=== PATIENT | female | born 1975 | race Caucasian/White ===

== ENCOUNTER 2020-09-01 04:26 | Outpatient (CLI) | payer BC, SELFPAY ==
[2020-09-03 11:36] LABS: Patient Race White; SARS-CoV-2 RNA Undetected (Undetected); SARS-CoV-2 Specimen Source Nasopharynx
== END 2020-09-01 04:46 ==
PROVIDERS: PCP Internal Medicine; Visit Provider Internal Medicine
DX: R50.9 Fever, unspecified (principal); R09.81 Nasal congestion
CPT/HCPCS: U0003

== ENCOUNTER 2021-08-10 11:29 | Outpatient (REF) | payer OTHER, SELFPAY | END 2021-08-10 11:30 | disposition home or self-care (01) | LOC: LBN 11:29 | PROVIDERS: PCP Internal Medicine; Referring Provider Physician Assistant Medical; Visit Provider Physician Assistant Medical | DX: R35.0 Frequency of micturition (principal) | CPT/HCPCS: 87077; 87086; 87186 ==

== ENCOUNTER 2025-05-31 07:23 | Emergency (ER) | payer OTHER, SELFPAY ==
[2025-05-31] VITALS (26 sets, daily range): BP systolic 100–135; BP diastolic 46–91; PULSE 87–194; RESP 11–31; TEMP 36.4; O2SAT 99–100
--- NOTE | 2025-05-31 07:15 | RT.EKG_ITS ---
APPROVED REPORT Exam: Resting ECG Reason for Exam: Chest Pain Patient Location: E HR:189 bpm ECG Measurements Heart Rate 189 AXIS NC [id number] P 0 QRSd 81 QRS 25 QT 282 T [id number] QTc 502 Conclusion Supraventricular tachycardia...V-rate>(220-age), QRSd<120 Repolarization abnormality, prob rate related...ST dep, T neg, tachycardia No Occlusion GA
--- NOTE | 2025-05-31 07:28 | ED.GENADUL_ITS ---
Discharge Plan Disposition Patient Disposition: Home Discharge Details Clinical Impression: Supraventricular tachycardia, Hypomagnesemia Primary Care Provider: Amy Ivan ED Provider: Deepak Carr Home Meds and New Rx's Prescriptions: Continued levothyroxine 150 mcg tablet 150 mcg PO DAILY Patient Comments: TAKE 1 TABLET BY MOUTH EVERY DAY Discharge Instructions Instructions: Supraventricular tachycardia (SVT) Additional Instructions: You are seen in the emergency department for your dizziness and chest discomfort. Your EKG showed that you are in a rapid rhythm called supraventricular tachycardia. You received adenosine which restored your normal sinus rhythm. As we discussed please follow-up with the primary care provider. Please return to the emergency department if you develop the symptoms again if you pass out or if you have any other concerns. Your sugar was quite high in the emergency department. Please follow-up with your primary care provider to monitor your prediabetes. Discharge Data Discharge Date/Time-TO BE ENTERED AT DEPARTURE: 05/31/25 10:15 HPI General Date/Time Provider Initiated Documentation: 05/31/25 07:28 . HPI Narrative: MDM Patient arrives in a narrow complex supraventricular tachycardia with rates up into the 190s. She had a normal blood pressure. She is mentating clearly. She had chest pressure. She had a nonischemic ECG. Following several attempts at cardioversion with vagal maneuvers I pushed 6 mg of adenosine. Patient's SVT broke. She felt improved. Her chest pressure nearly resolved. Her ECG was nonischemic showing a narrow complex normal sinus rhythm at a rate of 84. Her intervals were within normal limits. Equal breath sounds no trauma so doubt pneumothorax. No history of emesis to suggest esophageal rupture. No fevers to suggest pneumonia. No significant pericardial effusion to suggest tamponade. 8:34 AM Comprehensive metabolic panel showing very mild anion gap. Hyperglycemia. Normal bicarbonate?test not consistent with DKA. Mildly elevated alkaline phosphatase. Negative D-dimer. Reassuring troponin at 5 nanograms per liter. Given resolution of symptoms with adenosine will defer additional troponins. Patient is very low risk from a heart score perspective. I did not inquire as to family history of coronary artery disease so we will assign her 1 point for risk factors. Even with this additional risk factor added as a caution she is low risk from a heart score perspective. I anticipated that her subsequent troponins might be at risk for being elevated. Given her nearly resolved chest pain I felt that her chest pain was rate related and I did not feel that she required hospitalization for ischemic evaluation. I did not feel she required cardiology consultation. I did not feel that she required left heart catheterization or stress testing. We discussed possibility of primary care follow-up for subsequent palpitations. Negative hCG. Very mild hypomagnesemia. CBC notable for leukocytosis but no anemia nor thrombocytopenia. Will defer additional troponin given improved symptoms as my suspicion is high that patient would have elevated troponins given her tachycardia. Heart chest x-ray was read as unremarkable. She had no signs of heart failure on exam. Will ensure she can pass a p.o. trial. 9:43 AM Elevated TSH free T4 within normal limits. Patient passed p.o. trial. She felt improved. We discussed return indications like recurrent chest pain shortness of breath dizziness nausea or vomiting. I advised PCP follow-up to touch base about her SVT. She may or may not benefit from a Holter monitor if her symptoms recur. She was discharged with empiric trial of expectant outpatient management. HEART SCORE Chest pain Diagnostic Protocol: [-History/Physical/Gestalt: Slightly Suspicious (0)] [- EKG: Nonspecific repolarization (+1)] [- AGE: 45-65 (+1)] [- RISK FACTORS: 1 - 2 risk factors (+1)] [-TROPONIN: <= normal limit (0)] - TOTAL SCORE: 3 - Risk Factors: DM, current or recent smoker, HTN, HLD, family hx of CAD, obesity - INTERPRETATION: With a total score of 3 or less, risk of major cardiac event within six weeks 1.7%, likely lower with two negative troponins. Laboratory Tests Range/Units 05/31/25 05/31/25 05/31/25 07:34 08:32 10:32 WBC (4.4-10.8) 10^3/uL 11.07 H RBC (3.93-5.22) 10^6/uL 5.25 H Hgb (11.2-15.7) g/dL 15.0 Hct (36.0-46.0) % 44.8 MCV (80-95) fL 85 MCH (27.0-33.0) pg 28.6 MCHC (32.0-36.0) % 33.5 RDW (11.7-14.6) % 12.1 Plt Count (130-400) 10^3/uL 298 MPV (8.0-11.0) fL 10.1 Immature Gran % % 0.7 Neutrophils % % 58.1 Lymphocytes % % 31.6 Monocytes % % 6.7 Eosinophils % % 2.4 Basophils % % 0.5 Nucleated RBC % (0.0-0.3) % 0.0 Absolute Neutrophils (1.2-6.7) 10^3/uL 6.43 Absolute Lymphocytes (1.2-3.4) 10^3/uL 3.50 H Absolute Monocytes (0.1-0.8) 10^3/uL 0.74 Absolute Eosinophils (0.0-0.7) 10^3/uL 0.27 Absolute Basophils (0.0-0.2) 10^3/uL 0.06 D-Dimer (<500) ng/mlFEU 135 Sodium (136-145) mmol/L 134 L Potassium (3.5-5.1) mmol/L 3.9 Chloride (98-107) mmol/L 98 Carbon Dioxide (21.0-32.0) mmol/L 24.8 Anion Gap (3-11) mmol/L 11.2 H BUN (7-18) mg/dL 17 Creatinine (0.55-1.02) mg/dL 1.0 Est GFR (CKD-EPI 2020) (mL/min/1.73m2) 68.21 Glucose (74-106) mg/dL 495 H Calcium (8.5-10.1) mg/dL 9.4 Magnesium (1.8-2.4) mg/dL 1.7 L Total Bilirubin (0.2-1.0) mg/dL 0.4 AST (15-37) U/L 12 L ALT (14-59) U/L 41 Alkaline Phosphatase (46-116) U/L 142 H Troponin I (<or=51) ng/L 5 Cancelled Cancelled Total Protein (6.4-8.2) g/dL 7.4 Albumin (3.4-5.0) g/dL 3.7 TSH (0.36-3.74) uIU/mL 52.46 H Free T4 (0.76-1.46) ng/dL 0.98 Serum HCG, Qual Negative Add-On Test Request DONE Vital Signs Temperature 36.4 C 05/31/25 07:25 Temperature Source Oral 05/31/25 07:25 Pulse 90 05/31/25 09:55 Pulse 95 H 05/31/25 09:40 Respiratory Rate 11 L 05/31/25 09:55 Respiratory Effort Short of Breath 05/31/25 07:59 Respiratory Depth Normal 05/31/25 07:59 Respiratory Pattern Normal 05/31/25 07:59 Blood Pressure 130/71 05/31/25 09:55 Blood Pressure Mean 101 05/31/25 09:30 Blood Pressure Position Sitting 05/31/25 07:25 Pulse Oximetry 99 05/31/25 09:55 Oxygen Delivery Method Room Air 05/31/25 07:25 Oxygen Flow Rate 0 05/31/25 07:25 Intake & Output 05/31/25 05/31/25 06/01/25 11:59 23:59 11:59 Intake Total 510 / 510 Balance 510 / 510 Weight 74.843 kg Intake: IV 510 / 510 HPI 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 She experienced an episode of chest pain around 6:30 AM, which occurred upon standing from her bed. The pain was accompanied by a sensation of impending faintness, rapid heart rate, and excessive sweating. She also reported a burning sensation in her chest, throat, and jaw. She has a history of nutcracker esophagus but has never experienced dizziness or these other symptoms before. She did not lose consciousness during this episode. The pain radiated from the middle of her chest to her throat. She was sweating profusely and felt unwell. She had consumed alcohol the previous night but otherwise felt normal. Upon waking, she felt warm but not unwell. She reports no cough, vomiting, or fever. She attempted to burp several times due to a feeling of pressure but was unsuccessful. She suspects she may have been slightly dehydrated as she felt warm the previous night. She is currently perimenopausal. She reports no burning sensation during urination or abdominal pain. She has a history of low blood pressure and is prediabetic. She does not smoke but consumes alcohol a few times a week. She reports no history of blood clots in her legs or lungs. She has noticed that she needs to take two additional breaths after a deep breath, a symptom that started this morning. Exam General: Well-appearing in no acute distress speaking in complete sentences. Head: Normocephalic, atraumatic. Eye: Extraocular eye movements intact. No conjunctival injection. No scleral icterus. Ear, nose, mouth, throat: Grossly normal inspection. Normal voice, handling secretions normally. Neck: Trachea midline. Cardiovascular: Well-perfused distal extremities. Rapid regular rate. Respiratory: Nonlabored respiration. Clear lungs bilaterally. Gastrointestinal: Nondistended abdomen. Musculoskeletal: No significant lower extremity pitting edema. No calf tenderness. No Homans' sign. Moving all 4 extremities spontaneously. Skin: Normal for age and race, grossly normal temperature and turgor. No acute rash. Neurologic: Alert and appropriate, no apparent acute deficits. Psychiatric: Mood and manner are appropriate. Grooming and personal hygiene are appropriate. Related Data Home Medications ?Medication ?Instructions ?Recorded ?Confirmed levothyroxine 150 mcg tablet 150 mcg PO DAILY 05/31/25 05/31/25 Allergies Allergy/AdvReac Type Severity Reaction Status Date / Time azithromycin AdvReac Intermediate Skin Rash Verified 05/31/25 08:10 cephalexin (From Keflex) AdvReac Intermediate Hives Verified 05/31/25 08:10 General Stated Complaint: Chest Pain RODRIGUE: 2 Critical Care Time Critical Care Time Critical Care Time: Yes Total Critical Care Time: 30 Attestation: Supraventricular tachycardia requiring bedside assessment and management PFSH All Active Problems (Updated 05/31/25 @ 08:38 by Deepak Carr MD) Hypomagnesemia (Acute) Supraventricular tachycardia (Chronic) Social History Smoking/Tobacco Use Status: Never Smoking risk assessment performed?: Yes Alcohol Intake: current Alcohol Intake frequency: a few times a week Alcohol type: beer Drug use: Never Substance use type: does not use Housing: house Do you feel safe at home: Yes Do you feel safe in your relationship?: Yes POCUS Exam (ED) Limited Cardiac Exam DATE OF EXAM: 05/31/25 TIME OF EXAM: 09:24 PROVIDER THAT PERFORMED THE STUDY: Deepak Carr IS THIS A REPEAT EXAM DURING THIS ENCOUNTER: no REASON FOR EXAM: Chest pain VISUALIZED STRUCTURES: Four Chambers, Left ventricle and LVOT VIEW OBTAINED: Apical 4-Chamber, Parasternal long-axis and Subxiphoid PERTINENT FINDINGS/IMPRESSION: No pericardial effusion and No RV dilation DIFFERENTIAL DIAGNOSES: Aortic outflow track less than 4 cm, good squeeze, RV less than LV, no significant pericardial effusion. Exam complete
--- NOTE | 2025-05-31 07:30 | RT.EKG_ITS ---
APPROVED REPORT Exam: Resting ECG Reason for Exam: Chest pain Patient Location: E HR:84 bpm ECG Measurements Heart Rate 84 AXIS NJ 162 P 41 QRSd 76 QRS 13 QT 395 T 17 QTc 467 Conclusion Sinus rhythm...normal P axis, V-rate 60- 99 No Occlusion NE
--- NOTE | 2025-05-31 07:30 | DI.RAD_ITS ---
Exam(s) XR PORTABLE CHEST AP EXAM: XR PORTABLE CHEST AP CLINICAL HISTORY: Chest pain TECHNIQUE: 2D digital imaging was performed. COMPARISON: CR ABD FLAT UPRIGHT PA CHEST from 08/22/2011 CR CHEST ONE VIEW IN RAD DEPT from 08/22/2011 FINDINGS: Exam is limited by multiple overlying monitoring leads and defibrillator pads. LUNGS: Clear. No pleural abnormality seen. HEART: Normal size. AORTA: Normal diameter. BONES: Unremarkable for age. Soft tissues: Unremarkable. IMPRESSION: No acute findings. DATA REPOSITORY: RADIATION DOSE DELIVERED:
[2025-05-31] MEDS: Aspirin 81 MG CHEW 324 MG CH (07:38)
[2025-05-31] MEDS: Normal Saline 500 ML IV (07:39)
[2025-05-31 07:43] LABS: Abs Immature Grans 0.08 10^3/uL (0.0-0.06); HCT 44.8 % (36.0-46.0); HGB 15.0 g/dL (11.2-15.7); Immature Grans % 0.7 %; MCH 28.6 pg (27.0-33.0); MCHC 33.5 % (32.0-36.0); MCV 85 fL (80-95); MPV 10.1 fL (8.0-11.0); Platelet Count 298 10^3/uL (130-400); RBC 5.25 10^6/uL (3.93-5.22); RDW 12.1 % (11.7-14.6); RDW-SD 37.8 fL; WBC 11.07 10^3/uL (4.4-10.8)
[2025-05-31] MEDS: fentaNYL 100 MCG/2 ML VIAL 50 MCG IVP (07:44)
[2025-05-31] MEDS: Adenosine 6 MG/2 ML VIAL IVP (07:50)
[2025-05-31 08:05] LABS: ALT 41 U/L (14-59); AST 12 U/L (15-37); Albumin 3.7 g/dL (3.4-5.0); Alkaline Phosphatase 142 U/L (46-116); Anion Gap 11.2 mmol/L (3-11); BUN 17 mg/dL (7-18); Bilirubin, Total 0.4 mg/dL (0.2-1.0); CO2 24.8 mmol/L (21.0-32.0); Calcium 9.4 mg/dL (8.5-10.1); Chloride 98 mmol/L (98-107); Estimated GFR 68.21 (mL/min/1.73m2); Glucose 495 mg/dL (74-106); Magnesium 1.7 mg/dL (1.8-2.4); Potassium 3.9 mmol/L (3.5-5.1); Sodium 134 mmol/L (136-145); Total Protein 7.4 g/dL (6.4-8.2); Troponin I 5 ng/L (<or=51)
[2025-05-31] MEDS: Normal Saline Flush 10 ML SYR IVP (08:09)
[2025-05-31 08:12] LABS: HCG Qual (Serum) Negative
[2025-05-31 08:15] LABS: D-Dimer 135 ng/mlFEU (<500)
[2025-05-31 08:56] LABS: Lab Add On Test DONE
[2025-05-31] MEDS: Magnesium Oxide 400 MG TAB PO (09:08)
[2025-05-31 09:16] LABS: TSH (W/Ref FT4) 52.46 uIU/mL (0.36-3.74)
== END 2025-05-31 10:15 | disposition home or self-care (01) ==
PROVIDERS: Emergency Provider Emergency Medicine; PCP Internal Medicine
DX: I47.10 Supraventricular tachycardia, unspecified (principal); E83.42 Hypomagnesemia
CPT/HCPCS: 80053; 93005; 93308; 96361; 96374; 96375; 99285; 71045; 83735; 84439; 84443; 84484; 84703; 85025; 85379; 93010; J0153; J3010